=== PATIENT | female | born 1970 | race Two or more races ===

== ENCOUNTER 2020-12-05 10:40 | Emergency (ER) | payer OTHER ==
[~2020-12-05] VITALS: Ht 157.5 cm; Wt 111.5 kg
--- NOTE | 2020-12-05 10:53 | NUR ---
Pt in bathroom providing urine, changing into gown, to be placed on home assessment nurse.
--- NOTE | 2020-12-05 11:01 | NUR ---
Pt placed on correspondence section supervisor NSR no ectopy, no ST evlevation. 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 No SOB, no n/v. Cont pulse ox, b/p, side rails up x2, call bartlett. AIDET provided. Dr Adkins at bedside for evaluation.
[2020-12-05] MEDS ORDERED: ASPIRIN 81 MG TABLET CHEW ONE (11:05)
--- NOTE | 2020-12-05 11:08 | NUR ---
Lab barbara blood with blue top.
--- NOTE | 2020-12-05 11:11 | NUR ---
Pt has no chest pain, no sob now, will inform if cp returns.
[2020-12-05 11:19] LABS: BASOPHILS % (AUTO) 0 % (0-1); EOSINOPHILS % (AUTO) 2 % (1-7); LYMPHOCYTES % (AUTO) 44 % (22-44); MEAN CORPUSCULAR HEMOGLOBIN 29.1 pg (27.0-34.8); MEAN CORPUSCULAR HGB CONC 33.9 g/dL (32.4-35.8); MEAN PLATELET VOLUME 9.3 fL (7.4-10.4); MONOCYTES % (AUTO) 13 % (2-9); NEUTROPHILS % (AUTO) 42 % (42-75); PLATELET COUNT 254 x10^3/uL (130-400); RED CELL DISTRIBUTION WIDTH 13.5 % (9.6-15.2)
--- NOTE | 2020-12-05 11:28 | NUR ---
Repeat EKG done and handed to Dr Adkins. Pt remains CP free, NSR no ectopy. PCXR done. Will continue to monitor.
[2020-12-05] MEDS ORDERED: SODIUM CHLORIDE FLUSH 10ML SYR IVF ONE (11:30)
[2020-12-05] MEDS ORDERED: ASPIRIN 81 MG TABLET CHEW PO ONE (11:30)
[2020-12-05 11:34] LABS: CHLORIDE 108 mmol/L (98-107)
[2020-12-05 11:35] LABS: ALANINE AMINOTRANSFERASE 28 U/L (12-78); ALBUMIN 3.5 g/dL (3.4-5.0); ALKALINE PHOSPHATASE 103 U/L (45-117); ANION GAP 6 mmol/L (5-15); BILIRUBIN,TOTAL 0.3 mg/dL (0.2-1.0); CALCIUM 9.1 mg/dL (8.5-10.1); CREATININE 0.57 mg/dL (0.55-1.02); TOTAL PROTEIN 8.2 g/dL (6.4-8.2); TROPONIN I < 0.015 ng/mL (0.000-0.045)
[2020-12-05 12:28] VITALS: BP 126/62
--- NOTE | 2020-12-05 12:48 | NUR ---
Pt remains chest pain free, no complaints. VSS. Labs and PCXR WNL waiting for Dr adams to re-evaluate.
== END 2020-12-05 13:28 | disposition home or self-care (01) ==
LOC: ED 11:04
DX: R07.2 Precordial pain (principal); I49.3 Ventricular premature depolarization
CPT/HCPCS: 36415; 71045; 80053; 84484; 85025; 85379; 93005; 99285